=== PATIENT | female | born 1985 | race Caucasian/White ===

== ENCOUNTER 2016-11-20 23:18 | Emergency (ER) | payer OTHER ==
[2016-11-20 23:37] VITALS: BP 135/92; PULSE 78; RESP 20; TEMP 98.5
[2016-11-21] MEDS ORDERED: AMOXIC-POT CLAV 875MG STARTER 2 EACH TABLET PO STA (00:01)
[2016-11-21] MEDS ORDERED: IBUPROFEN 600 MG STARTER PACK 4 TAB BTL PO STA (00:01)
--- NOTE | 2016-11-21 00:03 | ED ---
General Adult HPI - General Chief complaint: ENT Stated complaint: right ear pain Time Seen by Provider: 11/20/16 23:57 Source: patient, RN notes reviewed Mode of arrival: ambulatory Limitations: no limitations - History of Present Illness Initial comments: 31-year-old female presents emergency Department chief complaint of right-sided ear pain. Patient states that she doesn't want history of ear infections. Patient states pain started getting worse. She took Tylenol with no improvement. Patient denies any fever chills any cough cold Raynaud's. Patient denies any nausea vomiting with this. Patient states she was concerned due to the extent of her pain so she thought that she should be evaluated. Patient denies any recent fever, chills, shortness of breath, chest pain, back pain, abdominal pain, nausea vomiting, numbness or tingling, dysuria or hematuria, constipation or diarrhea, headaches or visual changes, or any other current symptoms. - Related Data Previous Rx's Medication Instructions Recorded Amoxicillin/Potassium Clav 1 tab PO Q12HR #20 tab 11/21/16 [Augmentin 875-125 Tablet] Ibuprofen [Motrin] 600 mg PO Q6HR PRN #20 tab 11/21/16 Allergies Allergy/AdvReac Type Severity Reaction Status Date / Time sulfamethoxazole Allergy Rash/Hives Verified 11/20/16 23:38 [From Bactrim] trimethoprim [From Bactrim] Allergy Rash/Hives Verified 11/20/16 23:38 Review of Systems ROS Statement: Those systems with pertinent positive or pertinent negative responses have been documented in the HPI. ROS Other: All systems not noted in ROS Statement are negative. Past Medical History Additional Past Medical History / Comment(s): colitis History of Any Multi-Drug Resistant Organisms: None Reported Additional Past Surgical History / Comment(s): nasal, leg surgery Past Psychological History: No Psychological Hx Reported Smoking Status: Never smoker Past Alcohol Use History: Occasional Past Drug Use History: None Reported General Exam - General Exam Comments Initial Comments: General exam: Alert, active, comfortable in no apparent distress Head: Normocephalic Eyes: Normal reaction of pupils, equal size, normal range of extraocular motion Ears: normal external ear canals, pink tympanic membranes with normal cone of light on the left. Patient does appear to have an erythematous with effusion to the right tympanic membrane Nose: clear with pink turbinates Throat: no erythema or exudates with normal sized tonsils Neck: no masses, no nuchal rigidity Chest: no chest wall deformity Lungs: equal air entry with no crackles or wheeze CVS: S1 and S2 normal with no audible mumurs, regular rhythm Abdomen: no hepatosplenomegaly, normal bowel sounds, no guarding or rigidity Spine: no scoliosis or deformity Skin: no rashes Neurological: No focal deficits, tone is normal in all 4 extremities Limitations: no limitations Course Vital Signs 11/20/16 23:36 Temperature 98.5 F Pulse Rate 78 Respiratory 20 Rate Blood Pressure 135/92 O2 Sat by Pulse 98 Oximetry Medical Decision Making - Medical Decision Making 31-year-old female presents for what appears to be right otitis media. At this time we will start patient on Augmentin we discussed using Motrin along with Tylenol for pain control. We did give her follow-up to ENT due to the long history she states she has had of ear infections. We discussed return parameters and all her questions. She stated that she understood and she is agreeable to this plan. Some questions have been answered. She will be discharged. Disposition Clinical Impression: Right otitis media Disposition: HOME SELF-CARE Condition: Stable Instructions: Otitis Media (ED) Additional Instructions: Please use medication as discussed. Please follow up with family doctor if symptoms have not improved over the next two days. Please return to the emergency room if your symptoms increase or worsen or for any other concerns. Prescriptions: Amoxicillin/Potassium Clav [Augmentin 875-125 Tablet] 1 tab PO Q12HR #20 tab Ibuprofen [Motrin] 600 mg PO Q6HR PRN #20 tab PRN Reason: Pain Referrals: Oleg Hayes MD [STAFF PHYSICIAN] - 1-2 days Time of Disposition: 00:03
== END 2016-11-21 00:15 | disposition home or self-care (01) ==
LOC: EC 23:18
DX: H66.91 Otitis media, unspecified, right ear (principal); Z88.2 Allergy status to sulfonamides
CPT/HCPCS: 99282

== ENCOUNTER 2019-05-22 14:36 | Emergency (ER) | payer BC ==
[2019-05-22 14:45] VITALS: RESP 20; TEMP 98.1
[2019-05-22] MEDS ORDERED: SODIUM CHLORIDE 0.9% 1,000 ML IV STA (14:56)
[2019-05-22] MEDS ORDERED: METOCLOPRAMIDE 5 MG/ML 2 ML VIAL IVP STA (14:56)
[2019-05-22] MEDS ORDERED: diphenhydrAMINE 50 MG/ML 1 ML VIAL IVP STA (14:56)
--- NOTE | 2019-05-22 15:04 | ED ---
General Adult HPI - General Chief complaint: Headache Stated complaint: Poss Flu Time Seen by Provider: 05/22/19 14:46 Source: patient, RN notes reviewed Mode of arrival: ambulatory Limitations: no limitations - History of Present Illness Initial comments: 33-year-old female with a past medical history of colitis presents to the emergency department for a chief complaint of headache. Patient states she has had a headache since this morning. Patient states it came on gradually throughout the morning. States she did vomit a few times. Patient states it is in the back of her head. She denies any maximal intensity at onset of symptomatology. Denies any neck stiffness. Patient states she took Tylenol but it did not help. States she is also having body aches. States she feels cold. She has not checked for fever.Patient has no other complaints at this time including shortness of breath, chest pain, abdominal pain, headache, or visual changes. - Related Data Previous Rx's Medication Instructions Recorded Amoxicillin/Potassium Clav 1 tab PO Q12HR #20 tab 11/21/16 [Augmentin 875-125 Tablet] Ibuprofen [Motrin] 600 mg PO Q6HR PRN #20 tab 11/21/16 Allergies Allergy/AdvReac Type Severity Reaction Status Date / Time sulfamethoxazole Allergy Rash/Hives Verified 05/22/19 14:45 [From Bactrim] trimethoprim [From Bactrim] Allergy Rash/Hives Verified 05/22/19 14:45 Review of Systems ROS Statement: Those systems with pertinent positive or pertinent negative responses have been documented in the HPI. ROS Other: All systems not noted in ROS Statement are negative. Past Medical History Additional Past Medical History / Comment(s): colitis History of Any Multi-Drug Resistant Organisms: None Reported Past Surgical History: Orthopedic Surgery Additional Past Surgical History / Comment(s): nasal, leg surgery Past Psychological History: Anxiety Smoking Status: Never smoker Past Alcohol Use History: Occasional Past Drug Use History: None Reported General Exam Limitations: no limitations General appearance: alert, in no apparent distress Head exam: Present: atraumatic, normocephalic, normal inspection Eye exam: Present: normal appearance, PERRL, EOMI. Absent: scleral icterus, conjunctival injection, periorbital swelling ENT exam: Present: normal exam, mucous membranes moist Neck exam: Present: normal inspection, full ROM. Absent: tenderness, meningismus, lymphadenopathy Respiratory exam: Present: normal lung sounds bilaterally. Absent: respiratory distress, wheezes, rales, rhonchi, stridor Cardiovascular Exam: Present: regular rate, normal rhythm, normal heart sounds. Absent: systolic murmur, diastolic murmur, rubs, gallop, clicks Neurological exam: Present: alert, oriented X3, CN II-XII intact, normal gait, other (GCS 15) Psychiatric exam: Present: normal affect, normal mood Course Vital Signs 05/22/19 14:42 Temperature 98.1 F Pulse Rate 95 Respiratory 20 Rate Blood Pressure 116/71 O2 Sat by Pulse 97 Oximetry Medical Decision Making - Medical Decision Making Patient presents for headache in the back of her head. Gradual onset. No neck stiffness. Urine hCG was obtained followed by a CT of the brain which showed no acute intracranial hemorrhage, mass effect, or midline shift. He was treated with a migraine cocktail. On reevaluation patient states she has 0 out of 10 pain. States she feels completely better. She will follow up with primary care in 1-2 days. She'll return here if she has any worsening symptoms. I discussed this case with attending Dr. Howe who agrees with this assessment and treatment plan. - Lab Data Lab Results 05/22/19 05/22/19 Range/Units 15:09 15:09 Urine HCG, Qual Not Detected (Not Detectd) Influenza Type A RNA Not Detected (Not Detectd) Influenza Type B (PCR) Not Detected (Not Detectd) Disposition Clinical Impression: Headache Disposition: HOME SELF-CARE Condition: Good Instructions (If sedation given, give patient instructions): Acute Headache (ED) Additional Instructions: Please follow-up with your doctor in one to 2 days. Take Motrin and Tylenol for pain. Return to the emergency department if you have any worsening symptoms. Is patient prescribed a controlled substance at d/c from ED?: No Referrals: Francis Mariee MD [REFERRING] - 1-2 days Time of Disposition: 16:31
--- NOTE | 2019-05-22 15:34 | CT ---
EXAMINATION TYPE: CT brain wo con DATE OF EXAM: 05/22/2019 COMPARISON: None HISTORY: headache CT DLP: 1098.4 mGycm. Automated Exposure Control for Dose Reduction was Utilized. TECHNIQUE: CT scan of the head is performed without contrast. FINDINGS: There is no acute intracranial hemorrhage, mass effect, or midline shift identified. The ventricles and sulci are within normal limits in size. The globes are intact and the visualized sin uses are clear. IMPRESSION: No acute intracranial hemorrhage, mass effect, or midline shift is seen.
[2019-05-22] MEDS ORDERED: KETOROLAC 30 MG/ML 1 ML VIAL IVP STA (15:39)
[2019-05-22 16:46] VITALS: BP 114/72; PULSE 86
== END 2019-05-22 16:46 | disposition home or self-care (01) ==
LOC: EC 14:36
DX: R51 Headache (principal); R11.10 Vomiting, unspecified; R68.89 Other general symptoms and signs; Z88.1 Allergy status to other antibiotic agents; Z88.2 Allergy status to sulfonamides
CPT/HCPCS: 81025; 87502; 70450; 99284; 96374; 96375 ×2; 96361; J1200; J2765; J1885

== ENCOUNTER → 2019-11-23 | Outpatient (CLI) | payer BC ==
--- NOTE | 2019-11-23 07:58 | US ---
DATE OF EXAM: 11/23/2019 COMPARISON: US 06/24/14 CLINICAL HISTORY: E04.1 THYROID NODULE. MEASUREMENTS: GLAND SIZE: Homogeneous Right Lobe: 4.6 x 2.1 x 1.6 cm Left Lobe: 4.4 x 1.9 x 1.7 cm Isthmus Thickness: 0.3 cm NODULES RIGHT: # of nodules measured on right: 0 LEFT: # of nodules measured on left: 0 ISTHMUS: # of nodules measured within isthmus: 0 Bilateral neck scanned, no evidence of lymphadenopathy. IMPRESSION: No solid or cystic thyroid nodule
--- NOTE | 2019-11-23 08:01 | US ---
EXAMINATION TYPE: US pelvic complete DATE OF EXAM: 11/23/2019 COMPARISON: US 10/26/11 CLINICAL HISTORY: D25.9 KNOWN UTERINE LIEOMYOMA. TECHNIQUE: Transabdominal (TA). Transabdominal sonographic images of the pelvis were acquired. Tra nsvaginal sonographic images were medically necessary to better assess the following anatomy: Date of LMP: 11/22/19 EXAM MEASUREMENTS: Uterus: 16.4 x 7.7 x 7.5 cm Endometrial Stripe: 0.6 cm Right Ovary: 3.8 x 2.8 x 2.5 cm Left Ovary: 4.1 x 3.1 x 2.8 cm 1. Uterus: Anteverted With 3 large fibroids: fundal = 6.9 x 7.1 x 5.8 cm posterior = 8.0 x 7.8 x 7.1 cm posterior/left = 4.9 x 4.2 x 3.8 cm 2. Endometrium: wnl, distorted by fibroids 3. Right Ovary: wnl, with follicles 4. Left Ovary: wnl, with follicles Spectral, color and waveform doppler imaging shows good arterial and venous flow within the ovaries ; there is no evidence for ovarian torsion. 5. Bilateral Adnexa: wnl 6. Posterior cul-de-sac: wnl IMPRESSION: 1. Large myometrial uterine masses the largest measuring 8 cm most suggestive of uterine fibroids. Li mited assessment of the endometrium due to distortion of the uterine masses.
== END | disposition home or self-care (01) ==
LOC: RADUSWWP 07:13
PROVIDERS: ATTEND Obstetrics & Gynecology
DX: N85.8 Other specified noninflammatory disorders of uterus (principal); E04.1 Nontoxic single thyroid nodule
CPT/HCPCS: 76536; 76856

== ENCOUNTER → 2021-09-18 | Outpatient (CLI) | payer OTHER ==
[2021-09-18 18:10] LABS: Basophils # (A) 0.03 X 10*3/uL (0.00-0.10); Basophils % (A) 0.3 %; Eosinophils # (A) 0.21 X 10*3/uL (0.04-0.35); Eosinophils % (A) 2.4 %; HCT 37.9 % (37.2-46.3); HGB 12.6 g/dL (12.0-15.0); Immature Grans, Automated 0.2 %; Lymphocytes # (A) 2.62 X 10*3/uL (0.90-5.00); Lymphocytes % (A) 30.2 %; MCH 29.6 pg (27.0-32.0); MCHC 33.2 g/dL (32.0-37.0); MCV 89.2 fL (80.0-97.0); Mean Platelet Volume 9.6 fL (9.5-12.2); Monocytes # (A) 0.66 X 10*3/uL (0.20-1.00); Monocytes % (A) 7.6 %; NRBC Per 100 WBC 0 /100 WBCS (0.0-0.0); Neutrophils # (A) 5.14 X 10*3/uL (1.80-7.70); Neutrophils % (A) 59.3 %; Platelet Count 425 X 10*3/uL (140-440); RBC 4.25 X 10*6/uL (4.10-5.20); RDW 12.5 % (11.5-14.5); WBC 8.68 X 10*3/uL (4.50-10.00)
[2021-09-18 20:35] LABS: African American GFR (CKD) 109.2 (60.0-200.0); Non-African American GFR(CKD) 94.2 (60.0-200.0)
== END | disposition home or self-care (01) ==
LOC: LABWHC1 09:15
PROVIDERS: ATTEND Dermatology MOHS-Micrographic Surgery
DX: L40.0 Psoriasis vulgaris (principal)
CPT/HCPCS: 36415; 82565; 84450; 84460; 85025; 86480

== ENCOUNTER → 2021-12-05 | Outpatient (CLI) | payer OTHER ==
--- NOTE | 2021-12-05 10:04 | MR ---
EXAMINATION TYPE: MR lumbar spine wo con DATE OF EXAM: 12/05/2021 COMPARISON: Lumbar spine radiograph 12/02/2021, CT lumbar spine 11/23/2021 HISTORY: Low back pain that radiates down both legs, right leg numbness. TECHNIQUE: Multiplanar, multisequence images of the lumbar spine were acquired without IV contrast. Findings: Lumbar segments are intact. Grade 1 anterolisthesis of L5 on S1 with bilateral pars defects. No harrison eliza masses are identified. Conus medullaris has a normal appearance. Disc desiccation is present a t L4-L5 and L5-S1. L1-L2: Normal disc appearance without desiccation. No herniation, protrusion or disc bulging. No ca nal stenosis is present. Foramina are patent bilaterally. L2-L3: Normal disc appearance without desiccation. No herniation, protrusion or disc bulging. No ca nal stenosis is present. Foramina are patent bilaterally. L3-L4: Normal disc appearance without desiccation. No herniation, protrusion or disc bulging. No ca nal stenosis is present. Foramina are patent bilaterally. L4-L5: Central disc herniation with caudal extrusion approximately 1.5 cm resulting in severe spinal canal stenosis. Facet arthropathy demonstrated. The neural foramen are patent at this level. There is effacement of the bilateral exiting L5 nerve roots and remaining caudal nerve roots. Schmorl's node involving the inferior endplate of L4. L5-S1: Normal disc appearance without desiccation. No herniation, protrusion or disc bulging. No ca nal stenosis is present. Foramina are patent bilaterally. Other: Partial visualization of enlarged fibroid uterus. IMPRESSION: 1. 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 The re is effacement of the bilateral L5 exiting nerve roots and remaining caudal nerves. 2. Grade 1 anterolisthesis of L5 on S1 with bilateral pars defects. 3. Partial visualization of enlarged fibroid uterus.
== END | disposition home or self-care (01) ==
LOC: RADMRIMAIN 08:55
PROVIDERS: ATTEND Orthopaedic Surgery
DX: M51.26 Other intervertebral disc displacement, lumbar region (principal); M48.061 Spinal stenosis, lumbar region without neurogenic claudication; M47.816 Spondylosis without myelopathy or radiculopathy, lumbar region; D25.9 Leiomyoma of uterus, unspecified
CPT/HCPCS: 72148

== ENCOUNTER → 2021-12-11 | Outpatient (CLI) | payer OTHER ==
[2021-12-11 22:41] LABS: Basophils # (A) 0.03 X 10*3/uL (0.00-0.10); Basophils % (A) 0.4 %; Eosinophils # (A) 0.17 X 10*3/uL (0.04-0.35); Eosinophils % (A) 2.1 %; HCT 36.6 % (37.2-46.3); HGB 11.9 g/dL (12.0-15.0); Immature Grans, Automated 0.3 %; Lymphocytes # (A) 3.67 X 10*3/uL (0.90-5.00); Lymphocytes % (A) 46.3 %; MCH 29.8 pg (27.0-32.0); MCHC 32.5 g/dL (32.0-37.0); MCV 91.7 fL (80.0-97.0); Mean Platelet Volume 9.6 fL (9.5-12.2); Monocytes # (A) 0.65 X 10*3/uL (0.20-1.00); Monocytes % (A) 8.2 %; NRBC Per 100 WBC 0 /100 WBCS (0.0-0.0); Neutrophils # (A) 3.39 X 10*3/uL (1.80-7.70); Neutrophils % (A) 42.7 %; Platelet Count 402 X 10*3/uL (140-440); RBC 3.99 X 10*6/uL (4.10-5.20); RDW 12.4 % (11.5-14.5); WBC 7.93 X 10*3/uL (4.50-10.00)
[2021-12-11 23:00] LABS: INR 0.9 (0.90-1.11)
[2021-12-11 23:14] LABS: African American GFR (CKD) 117.4 (60.0-200.0); Anion Gap 10.4 mmol/L (10.00-18.00); BUN/Creat Ratio 10.55 Ratio (12.00-20.00); Blood Urea Nitrogen 7.9 mg/dL (9.0-27.0); Calcium 9.2 mg/dL (8.7-10.3); Carbon Dioxide 22.5 mmol/L (20.0-27.5); Non-African American GFR(CKD) 101.3 (60.0-200.0); Potassium 4.8 mmol/L (3.5-5.5)
== END | disposition home or self-care (01) ==
LOC: LABPAT 15:54
PROVIDERS: ATTEND Orthopaedic Surgery
DX: Z01.818 Encounter for other preprocedural examination (principal); M51.26 Other intervertebral disc displacement, lumbar region; Z22.322 Carrier or suspected carrier of Methicillin resistant Staphylococcus aureus
CPT/HCPCS: 80048; 85025; 85610; 87070; 93005

== ENCOUNTER 2021-12-16 14:51 | Day surgery (SDC) | payer OTHER ==
[2021-12-14 11:53] VITALS: BMI 31.6
[~2021-12-16 14:51] MED LIST: ACETAMINOPHEN TAB 500 MG TAB PO PRN; DEXAMETHASONE SOD PHOSPHATE 4 MG/ML 1 ML VIAL IV ONE; GABAPENTIN 300 MG CAP PO PRN; LACTATED RINGERS 1,000 ML IV SCH; LIDOCAINE 1% (10MG/ML) FOR IV START INTRADERMA PRN; ONDANSETRON 4 MG/2 ML VIAL IVP ONE; ONDANSETRON 4 MG/2 ML VIAL IVP PRN; TRANEXAMIC ACID IN NACL,ISO-OS 1,000 MG in SALINE 1 100ML.BAG IVPB PRN
[2021-12-16] MEDS ORDERED: LACTATED RINGERS 1,000 ML IV ONE (15:08)
[2021-12-16 15:23] LABS: Glucose,Whole Blood 89 mg/dL (70-110)
--- NOTE | 2021-12-16 16:27 | P.HPOR ---
History of Present Illness H&P Date: 12/11/21 [facility] History and Physical Date of :[birth year] Age: 36 year Height: 5'5" Weight: 150 lbs BP:121/82 BMI: 24.96 kg/m2 Occupation: Packaging Operator VAS: 7 CHIEF COMPLAINT: Low back pain and RLE weakness DOI:Chronic DOS: N/A Duration of current treatment regiment: 1 month HISTORY : Xrays No new xrays taken in office Trauma or injury No Work-Related No Pain description burning, sharp. Location posterior Patient notes that their pain radiates to right lower extremity Activity Modification yes Hand Dominance right TREATMENTS COMPLETED: 6 weeks of PT completed? Month and Year of last PT date? No Physician recommended home exercise completed? Duration of HEP course: Current yes Patient has trialed the physician directed home exercise program for without relief of their symptoms. Medications yes List: Prednisone, Flexeril, Tylenol, Gabapentin all without relief of her symptoms. Alternative interventions Chiropractic: yes , exacerbated symptoms. Massage therapy: No R.I.C.E: yes heat and ice without relief. Brace: No Injections No RFA: No SUBJECTIVE: Ms. Worrell returns to the office for a recheck of their low back. Since the time of the last appointment the patient reports no improvements to her symptoms and continues to complain of severe symptoms and a recent fall yesterday which exacerbated her pain. Patient notes increasing gait instability and cannot complete most daily functions at this time due to pain. Overall the patient has seen a progressive increase in symptoms since their onset. Ms. Worrell symptoms are exacerbated with any standing, ambulation, weightlifting, and sitting, due to this they notes that it is increasingly difficult for Ms. Worrell to complete many of their daily tasks. Patient is having severe sleep disturbances as well due to their ongoing pain and associated symptoms. Regarding treatments, the patient has previously trialed all abovementioned treatment modalities without relief of her symptoms.. Patient denies trialing any other modalities at this time. Otherwise the patient denies any f/c/sob/cp, no incision concerns, no bladder or bowel retention/incontinence, no perineal numbness/tingling, and ambulates independently. HISTORY: Ms. Worrell was last seen on 12/02/2021 with Billie Stoutenburg TELEPHONE INSTALLER-C regarding low back pain. Patient states this is been ongoing since 2016 without any trau ma or injury. Patient states she gets sharp pain in the lumbar region that exacerbates with bending. She states that primarily the pain was on the left side until a couple days ago now is on the right side. Patient states the pain is radiating into right lower extremity. She has no feeling in her right calf through her right foot. Patient is having significant gait disturbance is due to numbness and tingling. Patient has trialed the above listed modalities. she states she has completed a 12 day course of prednisone with relief. Patient has trialed Flexeril, Tylenol without relief. In the past she has also used gabapentin with mild relief. She denies any f/c/sob/cp, no incision concerns, no bladder or bowel retention/incontinence, no perineal numbness/tingling, and ambulates independen tly. The patients' past social, medical, family, surgical history, as well as review of systems, have been reviewed. Please refer to the Neurosurgery History and Physical form that has been scanned in to our electronic medical record system. 16 points review of systems completed and as stated in HPI, all other systems reviewed are negative. Social History: Reviewed, see appropriate section of the chart for details. P3 Social History: Smoking: non-smoker P3 Alcohol: no alcohol P3 Family History: Reviewed, see appropriate section of the chart for details. P2 Past Medical History: Reviewed, see appropriate section of the chart for details. P1 Current Medications: Rx: ASACOL 400MG ORAL Tablet, Ref: 11 Rx: XANAX 1MG ORAL Tablet, Ref: 0 Rx: ZOLOFT 100MG ORAL Tablet, Ref: 11 Rx: Humira 40 mg/0.8 mL subcutaneous syringe kit Ref: 0 Rx: TylenoL Ref: 0 Rx: Lyrica 150 mg capsule Ref: 0 PHYSICAL EXAMINATION: General: Awake, alert, appropriate for age, in no acute distress. HEENT: No unusual neck masses around region of lateral neck triangle, thyroid, supraclavicular groove Heart: Regular rate and rhythm, normal S1, S2 and no murmur/gallop. Lungs: Clear to auscultation bilaterally with no use of accessory muscles. Extremities: Skin warm and dry without acute lesions, coloration, temperature, skin intact, no tenderness or erythema Integument: Hairy patches: ABSENT Dorsal skin dimples: ABSENT Cafe au lait spots: ABSENT Surgical incisions: n/a Palpation: Please see Pain drawing on Intake sheet for further detail. Midline spinal tenderness: No E6 Cervical Tenderness: No E6 Paralumbar tenderness: No E6 Parathoracic tenderness: No E6 Buttocks tenderness: No E6 Sacroilliac Tenderness: No POSTURAL and MUSCULO-SKELETAL EVALUATION: Coronal Balance: NEUTRAL Recumbent testing: Patient is able to lay flat on back Sagittal Balance: NEUTRAL Shoulder Profile: LEVEL Pelvic Girdle: LEVEL Neck ROM: UNRESTRICTED Lumbar ROM: RESTRICTED Shoulder ROM: Symmetrical Hip ROM: Symmetrical Knee ROM: Symmetrical Hands: Normal appearance, symmetrical Feet: Normal appearance, Symmetrical VASCULAR STATUS : LEFT RIGHT Wrist Pulses INTACT INTACT Pedal Pulses (Dors. pedis & post.tibialis) INTACT INTACT Color NORMAL NORMAL Edema Absent Absent NEUROLOGIC EXAMINATION: Mental Status:Awake and alert, fully oriented, with normal attention, concentration and memory, and fluent, appropriate speech. Cranial Nerves: I: Olfactory not tested. II: Visual acuity normal, no visual field deficit noted with confrontation. III,IV: Normal pupillary reflexes & intact extraocular movements without nystagmus. V,: Intact symmetrical facial sensation. VII: Intact symmetrical facial motor movement VIII: Hearing intact. IX,X: Intact gag, swallow, & normal voice. XI: Sternocleidomastoid, trapezius function intact. XII: Tongue midline with normal movements. L'hermitte's Sign: Negative / absent Spurling'Sign: Absent bilaterally. Cubital percussion test: Absent bilaterally. Briceño-Tinel sign - Carpal region: Absent bilaterally. Straight Leg Raising: Absent bilaterally. 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 Sensory system (0-4, N/T) Test type RU TY RL LL Joint-Position 2 2 2 2 Vibration 2 2 2 2 Pain & LT sense 2 2 2 2 Dermatomal Deficit: None None L4-S1 None Gait and Functional Evaluation: Ambulatory aids: Independent Romberg's test: Intact bilaterally Toe heel walk / heel-toe walk intact while maintaining satisfactory balance? yes Squatting/straightening w/o assistance to a min of 60 degree knee flexion? No Single leg stance: intact Trendelenburg sign negative bilaterally Hand and finger dexterity intact bilaterally? yes Disdiadochokinesis examination negative bilaterally? yes RADIOGRAPHIC STUDIES: XRay taken on 12/02/21 of Lumbar Spine and Pelvis: Images reviewed. No acute fracture or dislocation noted. Reasonable disc heights as well as vertebral body heights. Alignment maintained. No instability in F/E. L5-S1 shows small Grade I spondylolisthesis that is table. AP pelvis shows congurent level pelvis MRI scan from 12/05/2021 of Lumbar Spine: IMages reviewed demonstrate extra large L4-5 HNP with disc extrusion extending the length of the posterior L5 vertebral body causing severe stenosis L4-5 centrally and b/l foraminal stenosis that is severe as well. There is disc height loss and dessication due to this herniation. There is some facet bogginess. No fracture or dislocation noted. Remaning discs are of maintained height and hydration with mild dehydration L5-S1 and Grade I listhesis that is table. No lesions noted. IMPRESSION: It was my pleasure to have seen and examined Sharita. I reviewed the patient's clinical syndrome, physical findings, and imaging studies during the appointment today. It is my impression that the patient has a diagnosis of. 1. 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 Progressive LE weakness b/l 3. Progressive LE paresthesias with RLE>LLE numbness 4. L5-S1 grade I spondylolisthesis, stable at this time I outlined the natural course history without intervention and various interventional options. PLAN: Based on my findings I suggest the following course of action: - -I discussed treatment options with the patient, including operative and non-operative options, and they have elected to proceed with the following surgi flaco procedure: lumbar (L4-L5) Microdiscectomy (90874) The indications, risks, benefits, and alternatives to surgery were discussed with the patient and family at length. Specifically (but not limited to) the risks of infection, stiffness, recurrence of symptoms, need for revision surgery, local numbness, neurovascular injury, and blood clots were discussed. The patient's questions were answered. The decision to proceed was made. Consent will be obtained for the procedure. -Advised patient to continue with supplements, health maintenance, and home exercise programs. Patient expressed understanding and will continue with these modalities. - Given a 2 weeks course of Prednisone 2mg to help relieve her ongoing pain. Spine Surgery Risk Review Ms. Worrell is presenting for evaluation of low back pain. It was my pleasure to have seen and examined Ms. Worrell. In our visit today we have had a chance to go over subjective complaints, physical examination findings and treatments including the natural course history without intervention and various interventional options. The patients imaging demonstrates: XRay taken on 12/02/21 of Lumbar Spine and Pelvis: Images reviewed. No acute fracture or dislocation noted. Reasonable disc heights as well as vertebral body heights. Alignment maintained. No instability in F/E. L5-S1 shows small Grade I spondylolisthesis that is table. MRI scan from 12/05/2021 of Lumbar Spine: IMages reviewed demonstrate extra large L4-5 HNP with disc extrusion extending the length of the posterior L5 vertebral body causing severe stenosis L4-5 centrally and b/l foraminal stenosis that is severe as well. There is disc height loss and dessication due to this herniation. There is some facet bogginess. No fracture or dislocation noted. Remaning discs are of maintained height and hydration with mild dehydration L5-S1 and Grade I listhesis that is table. No lesions noted. On physical exam, Ms. Worrell demonstrates significantly restricted lumbar ROM with gait disturbances and instability secondary to severe weakness of the right lower extremity. Patient also demonstrates a L4-S1 dermatomal deficit regarding the right lower extremity which correlates with her massive herniation at L4- L5. I have explained to the patient that as their condition progresses it will cause further neurological deficits and eventual paralysis. Based on the patients imaging, physical exam, and the rapid progression and disabling nature of their symptoms, at this time I recommend surgery in the form of a: (L4-L5) Open Microdiscectomy . I discussed the risk and benefits of this procedure at length with Ms. Worrell. The patient agreed to considered pursuing the procedure abovementioned. Prior to surgery, she should follow up with her PCP (Cardio, ID, IM etc) for clearance. Questions were invited and answered, and the patient wishes to proceed as outlined below. Currently, I am recommendin.(L4-L5) Microdiscectomy 2.Follow up with PCP for surgical clearance 3.Review of surgical risks and benefits as well as an educational packet on the proposed surgical procedure. Risks: All surgical procedures come with inherent risks, including those related to positioning, anesthesia, intraoperative findings, and postoperative complications. It is important to understand that surgery does not come with any guarantee of a successful outcome as complications and adverse events are always possible. The patient was given a handout in office today discussing the surgical procedure and risks associated with the intervention, both of which were discussed with the patient. These risks include but are not limited to the following: * Experiencing same, different or even worse symptoms in back, neck, arms, or legs compared to before surgery. Requiring further surgery or other forms of treatment presently or at some time in the future at same or other levels of the intended spine surgery. On an extreme but fortunately relatively rare basis severe complication such as blindness, stroke, heart attack, temporary and/or permanent nerve injury, paralysis, coma, or may occur, sometimes without known explanation. Surgical complications may include but are not limited to risk of infection, fluid accumulation in the surgical dissection site, including a seroma or hematoma, that requires additional surgery, wound drainage, bleeding, new numbness or weakness, vision changes/loss, spinal fluid leakage, non-healing and/or infected incision, headaches, difficulty or inability to swallow, hoarseness, hemopneumothorax, pneumothorax, impotence, retrograde ejaculation, vaginal dryness; injury to nerves, spinal cord, blood vessels, lymphatics or other vital organs (i.e., bowel injury, injury to the great vessels); heterotopic bone formation; complications related to the hardware such as screws, rods, cages including misplaced hardware, device failure, instrumentation at the wrong spine level, hardware fracture/breakage, or hardware loosening; vertebral failure of the spinal column above or below the newly placed hardware; retained surgical instrumentations or devices and the need for further surgery. * Medical risks of the planned spine surgery include but are not limited to generalized Infections to the whole body or local areas outside of the surgical site (sepsis), heart attack, bleeding, anaphylaxis, meningitis, seizure, epilepsy, hearing loss, burn thornton, laceration of the head or other areas of the body, bruising, hypersensitivity of the skin, bladder over distension; allergic reaction; shoulder injury related to positioning; fat, blood and air clots to other areas of the body like heart, lungs, brain; failure of internal organs such as lungs, kidneys, liver and excessive bleeding. If blood transfusions are necessary, note that transfusions may cause intolerance reactions such as anaphylaxis or other complex reactions. Despite best efforts, the results of spine surgery might not heal in terms of bone, soft tissues such as skin, fascia, ligaments, and joints. Additionally, in order to achieve best possible results, spine surgery may be carried out beyond the initially planned levels and involve decompression, fusion including insertion of hardware at levels other than the original intended area of surgical interest change some portions of the procedure in order to ensure the best possible outcomes. With spine surgery and spinal fusion, there are different off label uses of instrumentation (devices, implants and hardware) as well as biological substances (bone morphogenic proteins, demineralized bone matrix) as well as usi ng extra bone from allograft sources (i.e. cadaver bone) or autograft (iliac crest bone, ribs, or the spine itself). The patient has been given information about these practices and their inherent risks and benefits. [facility] is an educational center that serves as a training facility for neurosurgical and orthopedic HOTEL ENGINEER and Nursing students. Physician assistants are medically trained surgical providers who function in the outpatient, inpatient, and operating room setting under the direct supervision of the attending surgeon. [facility] has multiple operating rooms with single and overlapping rooms running daily. They currently function under the required guidelines as produced by the [facility] with regards to the overlapping rooms and will continue to comply with changes to this policy as they occur. The requirements include and are complied with as follows: (1) the critical portions of the overlapping rooms will not occur at the same time, (2) the attending physician will be physically present during the critical portions of the procedure and immediately available during the entire case, and (3) a back-up attending is designated should the primary attending not be immediately available. The patient has had a chance to review all the listed information, has been given print outs detailing this information, and has had all his/her questions answered to their satisfaction. It was my pleasure to have seen and examined Ms. Worrell. In our visit today we have had a chance to go over my understanding of our patient's current condition, the natural course history without intervention and various interventional options. Questions were invited and answered, and the patient wishes to proceed as outlined above. I have seen and examined the patient for 25 minutes and we have spent more than 50% of the time in repeat and detailed counseling about the patient's condition, its natural course history with out and as much as can be predicted with surgery and re-review of various surgical treatment options. In conclusion, Ms. Worrell and [his/her spouse/partner] requested we proceed with the above suggested surgery and are willing to accept risks and limitations of the suggested surgery as nature of the disease process and our best attempts at treatment for the condition. Thank you again for allowing us to be part of your patient's care. Please don't hesitate to contact me if you have any further questions. Signed and authenticated by: Tray Ronquillo [facility]im[facility] [address] [place] [id number] Past Medical History Past Medical History: Skin Disorder Additional Past Medical History / Comment(s): COLITIS. PSORIASIS History of Any Multi-Drug Resistant Organisms: None Reported Past Surgical History: Orthopedic Surgery Additional Past Surgical History / Comment(s): NASAL SURG. RIGHT ANKLE SURG. Past Anesthesia/Blood Transfusion Reactions: No Reported Reaction Past Psychological History: Anxiety Smoking Status: Never smoker Past Alcohol Use History: Rare Past Drug Use History: None Reported - Past Family History Mother Family Medical History: No Reported History Medications and Allergies Home Medications Medication Instructions Recorded Confirmed Type predniSONE [Deltasone] 20 mg PO BID #10 tab 11/23/21 12/14/21 Rx Adalimumab [Humira(Cf) Pen] 40 mg INJ Q14D 12/14/21 12/14/21 History Pregabalin [Lyrica] 0 mg PO DAILY 12/14/21 12/14/21 History Allergies Allergy/AdvReac Type Severity Reaction Status Date / Time sulfamethoxazole Allergy Rash/Hives Verified 12/14/21 11:42 [From Bactrim] trimethoprim [From Bactrim] Allergy Rash/Hives Verified 12/14/21 11:42 Physical Examination Osteopathic Statement: *. No significant issues noted on an osteopathic structural exam other than those noted in the History and Physical/Consult.
[2021-12-16] MEDS ORDERED: TRANEXAMIC ACID IN NACL,ISO-OS 1,000 MG/100 ML BAG ONE (16:50)
[2021-12-16] MEDS ORDERED: fentaNYL (PF) 50 MCG/ML 2 ML AMP ONE (16:50)
[2021-12-16] MEDS ORDERED: LIDOCAINE 2% INJ 20 MG/ML (2 ML VIAL) ONE (16:50)
[2021-12-16] MEDS ORDERED: GLYCOPYRROLATE 0.2 MG/ML 2 ML VIAL ONE (16:50)
[2021-12-16] MEDS ORDERED: MIDAZOLAM 2 MG/2 ML VIAL ONE (16:50)
[2021-12-16] MEDS ORDERED: PROPOFOL 10 MG/ML 20 ML VIAL IV ONE (16:50)
[2021-12-16] MEDS ORDERED: NEOSTIGMINE 1 MG/ML 10 ML VIAL ONE (16:50)
[2021-12-16] MEDS ORDERED: HYDROmorphone (PF) 1 MG/ML ONE (16:50)
[2021-12-16] MEDS ORDERED: SUCCINYLCHOLINE CHLORIDE 200 MG/10 ML VIAL IV ONE (16:50)
[2021-12-16] MEDS ORDERED: ROCURONIUM 10 MG/ML (5 ML VIAL) IV ONE (16:50)
[2021-12-16] MEDS ORDERED: GELATIN SPONGE,ABSORB (LARGE) 1 EACH SPONGE TOPICAL ONE (17:45)
[2021-12-16] MEDS ORDERED: BUPIVACAINE (PF) 0.25% 30 ML VIAL SQ ONE (17:45)
[2021-12-16] MEDS ORDERED: THROMBIN (BOVINE) 5,000 UNIT VIAL TOPICAL ONE (17:45)
[2021-12-16] MEDS: HYDROmorphone 0.5 MG/0.5 ML SYRINGE IVP PRN ×2 (20:00→20:15)
[2021-12-16 20:09] VITALS: RESP 16; TEMP 97.6
[2021-12-16] MEDS ORDERED: ONDANSETRON 4 MG/2 ML VIAL IVP ONE (21:00)
--- NOTE | 2021-12-16 21:28 | FL ---
Intraoperative/procedural fluoroscopic services were provided. Total fluoroscopy time is 7 seconds wi th a total of 4 submitted images to PACS. Please see the operative/procedural note for further detail s.
[2021-12-16] MEDS ORDERED: HYDROcodone/APAP 10-325MG 1 EACH TAB PO PRN (21:32)
[2021-12-16] MEDS ORDERED: HYDROmorphone 0.5 MG/0.5 ML SYRINGE IVP STA (22:51)
[2021-12-17 04:56] VITALS: BP 120/79; PULSE 79
--- NOTE | 2021-12-17 08:25 | P.OP ---
Date of Procedure: 12/16/21 Preoperative Diagnosis: 1. 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 RLE weakness with drop foot 3. RLE paresthesias and radiculopathy 4. Low back pain, mechanical 5. L5-S1 b/l Pars defects Postoperative Diagnosis: 1. 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 RLE weakness with drop foot 3. RLE paresthesias and radiculopathy 4. Low back pain, mechanical 5. L5-S1 b/l Pars defects Procedure(s) Performed: 1. L4-5 bilateral midline sparing laminotomy, partial medial facetectomy and foraminotomy with microdiscectomy (69294/50) Implants: None Anesthesia: GETA Surgeon: Tray Hennessy Lead Tank Mechanic #1: Billie Guy (Was present and assisted in all aspects of the case including positioning exposure decompression closure and dressing placement) Estimated Blood Loss (ml): 75 IV fluids (ml): 1,500 Urine output (ml): 0 Pathology: none sent Condition: stable Disposition: PACU Indications for Procedure: 36 yo female with hx of low back pain, RLE weakness and pain for the past year presented with acute increase in her pain, difficulty with ambulation due to progressive weakness in her RLE as well as new onset foot drop. She was seen in the [facility] and treated. Her MRI was completed and it showed a massive HNP at L4- 5 with extruded fragment causing severe stenosis centrally and b/l foraminal. She started to have issues with urination and so she was urgently boarded for decompression and discectomy. We discussed different options for treatment and due to her progressive symptoms she agreed surgical intervention was the way she wanted to go. We discussed risks and benefits as outlined in risk review. She was ready and willing to proceed with surgery. Description of Procedure: The patient was seen and examined in the preoperative area. All preoperative protocols were followed. Informed consent was obtained risks and benefits of the procedure were discussed at length. Risks including bleeding infection damage to the surrounding tissue and risk of reoperation were discussed with the patient. Risk of anesthesia up to and including was a discussed with the patient. These are outlined in the risk review. They were willing to accept these risks and all of the risks of surgery. The patient was given a weight- based dose of antibiotics in the form of 2 g Ancef. The patient was seen and evaluated by the anesthesia team who deemed them fit for surgery. The site was marked, the patient was willing to proceed with the procedure. The patient was transferred to the operative suite by the Department of anesthesia. They were then drifted off to sleep by the department anesthesia and GETA was performed. The patient tolerated this well. Once confirmation of lines and ventilation the patient was transferred to a prone Raghu table very carefully. All bony prominences including wrists, elbows, axilla, chest, hips, and thighs, and feet were padded very well. Special attention was paid to the genitalia and these were padded accordingly. SCDs were placed on bilateral lower extremities and were connected. Arms were well padded and placed on arm boards up and out in the 90/90 position. Once in position, again we confirmed good ventilation capabilities and that lines were running appropriately. The patient's lumbar spine was then exposed. 1010s were placed outlining the incision site. Standard alcohol was used to clean the incision site and allowed to dry. C-arm was used to biomark the patient and confirm level for incision which was marked with a skin marker. Operative briefing was performed with all teams and everyone in agreement to proceed. The patient was then prepped and draped in a normal sterile fashion. Timeout was then performed and all parties were in agreement with the procedure to be performed. Midline skin incision was made over the previously by a marked area and dissection taken down through subcutaneous fat to the lumbar fascia was identified once identified it was split bilaterally and a midline sparing approach subperiosteal dissection was then taken down of the lamina of L4 and L5 especially. Pars of L4 was identified and Mcclusky 4 was placed lateral fluoroscopic images and confirmed L4 5 interspace. We completed our exposure and placed a Versatrac retractor. We identified facet joints as well as lamina and pars of L5. Of note at L5 there is bilateral pars defects with exuberant scar tissue. There was some mobility of these fragments however it seemed relatively stable. We then performed bilateral midline sparing laminotomies and L4 and L5 making inverted U cuts and L4 and J cuts and L5 with partial medial facetectomies. Once this was accomplished we mobilized the traversing and exiting nerve roots as well as the central dura. There was a massive extruded disc fragment that measured 6 cm once removed from the epidural space. This was more eccentric to the right-hand side and causing severe central and foraminal stenosis. We then made an annulotomy and removed further fragments with micropituitary. Down biting curette was used to push fragments back into the disc space and any free fragments were then removed with a micropituitary. We irrigated the area and irrigated the disc space meticulous hemostasis was performed with bipolar electrocautery and FloSeal. The Mcclusky 4 was then placed into the disc space and the void that was created and lateral fluoroscopic image confirmed level and decompression. We again copiously irrigated the wound with normal sterile saline the area was inspected all IV nerve roots exiting traversing were free Vinson ball probe confirmed as well as direct visualization. There is no dural injuries and all nerves intact. We then removed a Versatrac retractor and placed 2 g of vancomycin powder within the wound. We then performed a layered closure #1 PDS placed in the fascia followed by 0 Vicryl in the deep subcu tissue 2-0 Vicryl in the superficial subcu tissue and a 40 strata fix running suture in the skin. Wound edges a pproximated very well. The wound was then cleaned and dressed sterilely with ex-tape and glue. The glue was allowed to dry and opt foam dressing was then placed. The patient was transferred back to their hospital bed atraumatically. Patient was then awakened and extubated by the department of anesthesia having tolerated the procedure very well with no complications. They were transferred to the postoperative care unit in stable condition.
== END 2021-12-17 00:51 | disposition home or self-care (01) ==
LOC: OR 14:51 → 4SSUR 19:51 → OR 12-17 00:51
PROVIDERS: ATTEND Orthopaedic Surgery
DX: M51.16 Intervertebral disc disorders with radiculopathy, lumbar region (principal); M43.17 Spondylolisthesis, lumbosacral region; M48.061 Spinal stenosis, lumbar region without neurogenic claudication; M21.379 Foot drop, unspecified foot; M62.81 Muscle weakness (generalized); M54.50 Low back pain, unspecified; G47.9 Sleep disorder, unspecified; K52.9 Noninfective gastroenteritis and colitis, unspecified; L40.9 Psoriasis, unspecified; F41.9 Anxiety disorder, unspecified; K51.90 Ulcerative colitis, unspecified, without complications; Z98.890 Other specified postprocedural states; Z88.2 Allergy status to sulfonamides
CPT/HCPCS: 81025; 86900; 86901; 86850; 72100; 63030; C1762; J2250; J0330; J1100; J2710; J0690; J2405; J3010; J1170 ×2; J2704; J2001

== ENCOUNTER → 2022-01-05 | Outpatient (CLI) | payer OTHER ==
--- NOTE | 2022-01-05 12:23 | MR ---
EXAMINATION TYPE: MR lumbar spine wo/w con DATE OF EXAM: 01/05/2022 COMPARISON: MRI lumbar spine December 05, 2021. Lumbar spine intraoperative x-ray December 16, 2021 HISTORY: Post surgical continued pain into rt side TECHNIQUE: Multiplanar, multisequence images of the lumbar spine is performed without and with IV contrast, util izing 9 mL intravenous Gadavist FINDINGS: Sagittal images of the lumbar spine show vertebral body heights to remain satisfactory. Sta ble slight grade 1 retrolisthesis L4 on L5. Disc desiccation L4-L5 and L5-S1 levels redemonstrated. M ild to moderate disc space narrowing L4-L5 level again seen. The conus medullaris remains normal in p osition and signal ending superior L1 level. The bone marrow signal intensity is within normal limit s. No abnormal postcontrast enhancement is seen. Axial images show T12-L1 through L3-L4 levels to remain within normal limits. Axial images at L4-L5 level showed new bilateral laminectomy defects. Posterior subcutaneous fluid is now identified. There is marked improvement in the prior large disc herniation. There is successful posterior decompression. Bilateral neural foramina remain present. Some enhancing tissue surrounding spinal canal favors scar tissue as there is no concerning fluid or abnormal osseous changes identifie d. Axial images at the L5-S1 level show mild facet arthropathy. Spinal canal is preserved. Bilateral rosemarie ral foramina are patent. There is lobulated enhancing right pelvic mass partially imaged felt to correspond to markedly enlarg ed fibroid uterus on prior studies and pelvic ultrasound November 2019. IMPRESSION: Interval surgery with successful posterior decompression L4-L5 level. No suspicious new f indings are evident. Alignment stable.
== END | disposition home or self-care (01) ==
LOC: RADMRIMAIN 10:09
PROVIDERS: ATTEND Nurse Practitioner Family
DX: M54.10 Radiculopathy, site unspecified (principal)
CPT/HCPCS: 72158; A9585